=== PATIENT | female | born 1975 | race Caucasian/White ===

== ENCOUNTER 2016-10-07 02:25 | Inpatient (IN) | payer OTHER ==
[2016-10-07] MEDS ORDERED: TERBUTALINE SULFATE 1 MG/ML VIAL IV PRN (02:41)
[2016-10-07] MEDS ORDERED: OXYTOCIN/RINGERS LACTATE 1,000 ML IV PRN (02:41)
[2016-10-07] MEDS ORDERED: LR 1,000 ML IV PRN (02:41)
[2016-10-07] MEDS ORDERED: VANCOMYCIN HCL/NORMAL SALINE 250 ML IV SCH (03:00)
[2016-10-07] MEDS ORDERED: AMMONIA AROMATIC 1 EACH AMP IH ONE (03:01)
[2016-10-07] MEDS ORDERED: TERBUTALINE SULFATE 1 MG/ML VIAL ONE (03:01)
[2016-10-07] MEDS ORDERED: OXYTOCIN 10 UNIT/ML VIAL ONE (03:01)
[2016-10-07] MEDS ORDERED: LIDOCAINE 1% 30 ML SDV ONE (03:01)
[2016-10-07] MEDS ORDERED: MISOPROSTOL 200 MCG TAB ONE (03:02)
[2016-10-07 03:07] LABS: % IMMATURE GRANULYOCYTES 0.9 % (0.0-1.1); ABSOLUTE IMMATURE GRANULOCYTES 0.13 10^3/uL (0.00-0.10); ADD DIFF? NO; ADD MORPH? NO; ADD SCAN? NO; ATYPICAL LYMPHOCYTE FLAG 0 (0-99); FRAGMENT RBC FLAG 0 (0-99); HEMATOCRIT 36.4 % (38.0-47.0); HEMOGLOBIN 12.7 g/dL (12.6-16.3); LEFT SHIFT FLG 10 (0-99); LIPEMIA HEMOLYSIS FLAG 90 (0-99); MEAN CELL HEMOGLOBIN 30.9 pg (27.9-34.1); MEAN CELL HEMOGLOBIN CONCENTR. 34.9 g/dL (32.4-36.7); MEAN CELL VOLUME 88.6 fL (81.5-99.8); MEAN PLATELET VOLUME 12.1 fL (8.7-11.7); PLATELET CLUMPS FLAG 0 (0-99); PLATELET COUNT 117 10^3/uL (150-400); RED BLOOD CELL COUNT 4.11 10^6/uL (4.18-5.33); RED CELL DISTRIBUTION WIDTH 13.4 % (11.5-15.2)
[2016-10-07 03:23] LABS: ALANINE AMINOTRANSFERASE 29 IU/L (9-52); ASPARTATE AMINOTRANSFERASE 18 IU/L (14-46); BILIRUBIN,TOTAL 0.7 mg/dL (0.1-1.4); BILIRUBIN-CONJUGATED 0.2 mg/dL (0.0-0.5); BILIRUBIN-UNCONJUGATED 0.5 mg/dL (0.0-1.1); CREATININE 0.6 mg/dL (0.6-1.0); GLOMERULAR FILTRATION RATE > 60; LACTATE DEHYDROGENASE 426 IU/L (313-618); URIC ACID 3.6 mg/dL (2.5-6.8)
[2016-10-07] MEDS ORDERED: PHENYLEPHRINE HCL 100 MCG/ML SYR ONE (03:25)
[2016-10-07] MEDS ORDERED: BUPIVACAINE 0.25% 30 ML SDV ONE (03:25)
[2016-10-07] MEDS ORDERED: fentaNYL 2MCG/ML/BUP 0.1% RTU 100 ML BAG EP ONE (03:25)
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
[2016-10-07] MEDS ORDERED: LR 500 ML IV SCH (04:30)
[2016-10-07] MEDS ORDERED: HYDROCORTISONE 0.5% CREAM TP PRN (07:47)
[2016-10-07] MEDS ORDERED: SIMETHICONE 80 MG TAB CHEW PO PRN (07:47)
[2016-10-07] MEDS ORDERED: HYDROCODONE/APAP 5/325 TAB PO PRN (07:47)
[2016-10-07] MEDS ORDERED: ACETAMINOPHEN 325 MG TAB PO PRN (07:47)
[2016-10-07] MEDS ORDERED: DOCUSATE SODIUM 100 MG CAP PO PRN (07:47)
--- NOTE | 2016-10-07 07:51 | OBPROC ---
- Labor and Delivery Onset of Contractions Date: 10/07/16 Onset of Contractions Time: 00:00 Onset of Contractions Type: Spontaneous Rupture of Membranes Date: 10/07/16 Rupture of Membranes Time: 07:11 Rupture of Membranes Type: Artificial Amniotic Fluid Color: Meconium Stained-Moderate Dilation Complete Time: 07:11 Delivery Type: Spontaneous Placenta Delivery Date: 10/07/16 Placenta Delivery Time: 07:24 Episiotomy/Laceration: 1st Degree Repair: 3-0, Vicryl EBL: 300 Complications: None - Medications Labor Augmentation/Induction Meds Used: None Labor Augmentation/Induction Indication: Post Dates Anesthesia: Epidural - Info A Delivery Date: 10/07/16 Delivery Time: 07:20 Sex of : Female Score (1 Min): 8 Score (5 Min): 9
[2016-10-07] MEDS: IBUPROFEN 600 MG TAB PO PRN ×2 (16:43→22:51)
[2016-10-07] MEDS: THYROID 60 MG TAB PO SCH (17:45)
[2016-10-08 00:32] VITALS: RESP 16
[2016-10-08 05:25] LABS: HEMATOCRIT 36.8 % (38.0-47.0); HEMOGLOBIN 12.3 g/dL (12.6-16.3); MEAN CELL HEMOGLOBIN 30.7 pg (27.9-34.1); MEAN CELL HEMOGLOBIN CONCENTR. 33.4 g/dL (32.4-36.7); MEAN CELL VOLUME 91.8 fL (81.5-99.8); RED BLOOD CELL COUNT 4.01 10^6/uL (4.18-5.33); RED CELL DISTRIBUTION WIDTH 13.8 % (11.5-15.2)
--- NOTE | 2016-10-08 08:35 | SOAPPROG ---
SOAP Progress Note Assessment/Plan: Assessment: ppd# 1 s/p breast feeding uncomplicated post course rh positive Plan: routine post care and discharge instructions discharge today unless peds wants to keep baby 10/08/16 08:34 Subjective: patient is doing well. pain is well controlled. ronen lochia. denies headache and changes in vision. ambulating. passing gas. breast feeding is going well. Objective: Vital Signs Temp Pulse Resp BP Pulse Ox 36.9 C 81 16 117/70 10/07/16 20:00 10/07/16 20:00 10/07/16 20:00 10/07/16 20:00 Laboratory Results 10/08/16 04:35 10/07/16 02:50 10/07/16 10/08/16 10/09/16 05:59 05:59 05:59 Output Total 300 Balance -300 Physical Exam - Physical Exam General Appearance: WD/WN, alert, no apparent distress Respiratory: chest non-tender, lungs clear, normal breath sounds Cardiac/Chest: normal peripheral pulses, regular rate, rhythm Abdomen: normal bowel sounds, non-tender, soft, other (fundus firm and non tender) Skin: normal color, warm/dry Extremities: normal range of motion, non-tender, normal inspection, normal capillary refill Neuro/Psych: no motor/sensory deficits, alert, normal mood/affect, oriented x 3 ICD10 Worksheet Patient Problems: Problems Problem Status Onset (spontaneous vaginal delivery) Acute
[2016-10-08] MEDS: THYROID 60 MG TAB PO SCH (09:29)
[2016-10-08] MEDS: IBUPROFEN 600 MG TAB PO PRN (14:19)
[2016-10-09] MEDS: IBUPROFEN 600 MG TAB PO PRN (03:11)
--- NOTE | 2016-10-09 08:31 | SOAPPROG ---
SOAP Progress Note Assessment/Plan: Assessment: nipples intact ff@u scant rubra lochia pain well managed voiding without difficulty passing gas Plan:discharge to home with instructions rest, pain management, depression, ss infection, pelvic rest, exercise, breastfeedingcontraception, 4 week and 6 week visit 10/09/16 08:27 Subjective: Denies difficulties. ready to go home Objective: Vital Signs Temp Pulse Resp BP Pulse Ox 36.3 C 98 16 135/86 H 96 10/08/16 19:56 10/08/16 19:56 10/08/16 19:56 10/08/16 19:56 10/08/16 19:56 Laboratory Results 10/08/16 04:35 10/07/16 02:50 10/08/16 10/09/16 10/10/16 05:59 05:59 05:59 Output Total 300 Balance -300 - Time Spent With Patient Time Spent With Patient: 10 minutes - Pending Discharge Pending Discharge Date: 10/09/16 Pending Discharge Time: 11:00 ICD10 Worksheet Patient Problems: Problems Problem Status Onset (spontaneous vaginal delivery) Acute
[2016-10-09 09:03] VITALS: BP 132/74; PULSE 75; TEMP 98; O2SAT 95
[2016-10-09] MEDS: THYROID 60 MG TAB PO SCH (11:18)
== END 2016-10-09 12:30 | disposition home or self-care (01) | DRG 775 ==
LOC: FLD 02:25 → FOB 11:17
PROVIDERS: ADMIT Obstetrics & Gynecology; ATTEND Obstetrics & Gynecology
PROC: 10E0XZZ Delivery of Products of Conception, External Approach (ICD-10-PCS; principal; 2016-10-07)
PROC: 0HQ9XZZ Repair Perineum Skin, External Approach (ICD-10-PCS; principal; 2016-10-07)
PROC: 10907ZC Drainage of Amniotic Fluid, Therapeutic from Products of Conception, Via Natural or Artificial Opening (ICD-10-PCS; principal; 2016-10-07)
DX: O48.0 Post-term pregnancy (principal); O41.03X0 Oligohydramnios, third trimester, not applicable or unspecified; O76 Abnormality in fetal heart rate and rhythm complicating labor and delivery; O99.824 Streptococcus B carrier state complicating childbirth; O70.0 First degree perineal laceration during delivery; O99.284 Endocrine, nutritional and metabolic diseases complicating childbirth; E03.9 Hypothyroidism, unspecified; O77.0 Labor and delivery complicated by meconium in amniotic fluid; Z3A.41 41 weeks gestation of pregnancy; Z37.0 Single live birth
CPT/HCPCS: J2370; J2590; J3105; J3370